=== PATIENT | female | born 1950 | race African-American/Black ===

== ENCOUNTER 2024-01-03 06:57 | Emergency (ER) | payer OTHER ==
[~2024-01-03] VITALS: Ht 172.7 cm; Wt 112.0 kg
[2024-01-03] MEDS: FENTANYL CITRATE/PF 50MCG/ML 2ML VIAL IV ONE (07:46)
[2024-01-03 08:56] VITALS: O2SAT 98
[2024-01-03 09:16] LABS: BASOPHILS % 0.7 % (0.0-2.0); EOSINOPHILS % 1.7 % (0.0-5.0); HEMATOCRIT. 38.8 % (36.0-48.0); HEMOGLOBIN. 12.8 g/dL (12.0-16.0); LYMPHOCYTES % 17.2 % (20.0-50.0); MEAN CORPUSCULAR HEMOGLOBIN 32.4 pg (28.0-32.0); MEAN CORPUSCULAR VOLUME 97.9 fL (81.0-99.0); MEAN PLATELET VOLUME 9.3 fl (7.4-10.4); MONOCYTES % 5.7 % (2.0-8.0); NEUTROPHILS % 74.7 % (40.0-76.0); PLATELET 215 x1000/uL (130-400); RED BLOOD CELL COUNT 3.96 mill/uL (4.2-5.4); RED CELL DISTRIBUTION WIDTH 14.2 % (11.6-14.6); WHITE BLOOD COUNT 6.5 x1000/uL (4.5-11.0)
[2024-01-03 09:21] LABS: POTASSIUM 4.8 mEq/L (3.5-5.1)
[2024-01-03 09:22] LABS: CALCIUM 9.9 mg/dL (8.7-10.4)
[2024-01-03 09:27] LABS: CREATININE 1.3 mg/dL (0.6-1.0)
[2024-01-03] MEDS: KETAMINE HCL 50 MG/ML 10ML IV ONE ×2 (10:03→10:51)
[2024-01-03] MEDS: PROPOFOL 200MG/20ML VIAL IV ONE ×2 (10:04→11:26)
[2024-01-03 11:58] VITALS: BP 136/45; PULSE 60; RESP 20; TEMP 36.72516; O2SAT 99
== END 2024-01-03 12:35 | disposition short-term general hospital (02) ==
LOC: ER 06:57
DX: S43.015A Anterior dislocation of left humerus, initial encounter (principal); W01.0XXA Fall on same level from slipping, tripping and stumbling without subsequent striking against object, initial encounter; Y93.89 Activity, other specified; Y92.89 Other specified places as the place of occurrence of the external cause; Y99.8 Other external cause status
CPT/HCPCS: 99291; 23650; 96374; 80048; 85025; 36415; 73030; 99152; 73020; J3010; J3490; J2704